=== PATIENT | male | born 1940 | race Caucasian/White ===

== ENCOUNTER → 2017-08-25 | Outpatient (CLI) | payer MEDICARE, BC ==
[~2017-08-25] MED LIST: LEVO.025 PO; LOTR5CAP2 PO; MULT400T PO; PERC5TAB12 PO; TAMS0.4C67 PO; XARE10TA PO; [UNRECOGNIZED DRUG - OTHER] PO
--- NOTE | 2017-08-31 09:57 | RSPPFT ---
DATE OF PROCEDURE: 08/25/17 COMMENTS: Spirometry demonstrates an FEV1 of 2.3 at 84% of predicted, FVC of 3.3 at 94%, FEF 25-75 is 53%. Post-bronchodilator study demonstrated no significant change. Lung volumes demonstrated a raised RV/TLC ratio suggesting hyperinflation with air trapping. Diffusion capacity is normal. Flow volume loops suggest an obstructive pattern. IMPRESSION: 1. Mild obstructive disease. 2. No significant change following use of bronchodilator. 3. Hyperinflation with air trapping. 4. Normal diffusion capacity.
== END ==
LOC: PHRSP 09:28
PROVIDERS: ATTEND Internal Medicine Cardiovascular Disease
DX: R06.02 Shortness of breath (principal)
CPT/HCPCS: 94060; 94726; 94729

== ENCOUNTER → 2017-10-01 | Outpatient (CLI) | payer MEDICARE, BC ==
[~2017-10-01] MED LIST changes: +AMLO5CAP PO; +BOSW5TAB PO; +HYDR-3580 PO; +LEVO25TA4 PO; +TAMS0.4C4 PO; +XARE20TA PO
[2017-10-01 09:09] LABS: HEMATOCRIT 44.4 % (39.0-51.0); MEAN CELL VOLUME 95.7 FL (80.0-100.0); MEAN CORPUSCULAR HEMOGLOBIN 32.6 PG (27.0-34.0); MEAN CORPUSCULAR HGB CONC 34.1 % (32.0-36.0); PLATELET COUNT 211 TH/MM3 (150-450); RED BLOOD COUNT 4.64 MIL/MM3 (4.50-5.90); RED CELL DISTRIBUTION WIDTH 13.2 % (11.6-17.2); REVIEW FLAG FINAL; WHITE BLOOD COUNT 4.6 TH/MM3 (4.0-11.0)
[2017-10-01 09:15] LABS: APTT (PATIENT) 35.4 SEC (24.3-30.1); INTERNATIONAL NORMALIZED RATIO 1.5 RATIO; PROTHROMBIN TIME - PATIENT 15.1 SEC (9.8-11.6)
[2017-10-01 09:19] LABS: BLOOD, URINE NEG (NEG); COMMENT (UR) CULT NOT INDICATED; CULTURE IF INDICATED CULT NOT INDICATED; GLUCOSE,URINE NEG (NEG); KETONE, URINE NEG (NEG); MUCUS URINE FEW /lpf (OCC); NITRITE,URINE NEG (NEG); PH, URINE 5.5 (5.0-8.5); SQUAMOUS EPITHELIAL CELL URINE <1 /hpf (0-5); URINE COLOR YELLOW (YELLW/STRAW)
[2017-10-01 09:25] LABS: POTASSIUM 4.3 MEQ/L (3.5-5.1)
== END ==
LOC: CPRE 08:13
PROVIDERS: ATTEND Orthopaedic Surgery
DX: Z01.812 Encounter for preprocedural laboratory examination (principal); Z01.818 Encounter for other preprocedural examination; M17.11 Unilateral primary osteoarthritis, right knee; I10 Essential (primary) hypertension; M79.609 Pain in unspecified limb
CPT/HCPCS: 36415; 80048; 81001; 85027; 85610; 85730

== ENCOUNTER 2017-10-19 05:09 | Inpatient (IN) | payer MEDICARE, BC ==
[~2017-10-19] VITALS: Ht 175.3 cm; Wt 104.7 kg
[~2017-10-19 05:09] MED LIST changes: -HYDR-3580 PO; -LEVO.025 PO; -LOTR5CAP2 PO; -PERC5TAB12 PO; -TAMS0.4C67 PO; -XARE10TA PO; -[UNRECOGNIZED DRUG - OTHER] PO
[2017-10-19] MEDS ORDERED: EXPAREL PERI-ARTICULAR INJECTION (TOTAL VOL. 100 ML) P-ARTICULR SCH ×2 (05:45)
[2017-10-19] MEDS ORDERED: CHLORHEXIDINE GLUCONATE 2 % 1 PACK (2 CLOTHS) TOPICAL PRN (05:45)
[2017-10-19] MEDS ORDERED: METOPROLOL TARTRATE 25 MG TAB PO PRN (05:45)
[2017-10-19] MEDS ORDERED: TRANEXAMIC ACID INJ 1,005 MG in SODIUM CHLORIDE 0.9% INJ 100 ML IV SCH ×4 (05:45)
[2017-10-19] MEDS ORDERED: LACTATED RINGER'S 1000 ML IV PRN (05:45)
[2017-10-19] MEDS ORDERED: CHLORHEXIDINE GLUCONATE 4% SOLN 120 ML BTL TOPICAL SCH (05:45)
[2017-10-19] MEDS ORDERED: SODIUM CHLORID 0.9% 500 ML IV PRN (05:45)
[2017-10-19] MEDS ORDERED: ceFAZolin 2 GM PREMIX 50 ML IV SCH (05:45)
[2017-10-19] MEDS ORDERED: POVIDONE IODINE 5% (ANTISEPSIS KIT) 4 APPLICATIONS EACH NARE PRN (05:45)
[2017-10-19] MEDS ORDERED: GENTAMICIN SULFATE 80 MG/2 ML VIAL ONE (06:00)
[2017-10-19 06:16] LABS: INTERNATIONAL NORMALIZED RATIO 1.1 RATIO; PROTHROMBIN TIME - PATIENT 11.4 SEC (9.8-11.6)
[2017-10-19] MEDS ORDERED: ACETAMINOPHEN 1000 MG/100 ML 100 ML IV ONE (06:30)
[2017-10-19] MEDS ORDERED: FAMOTIDINE 20 MG/2 ML VIAL ONE (06:30)
[2017-10-19] MEDS ORDERED: BUPIVACAINE LIPOSOME PF 1.3% 20 ML VIAL ONE (06:31)
--- NOTE | 2017-10-19 06:59 | HHI.FF ---
Face to Face Verification Diagnosis: (1) Status post total right knee replacement Physical Therapy Gait training Knee: Total knee, Protocol: Right, Gait training, Full weight bearing Right LE Weight Bearing: WB as tolerated Right LE Range of Motion: Active ROM (AROM,AAROM, PROM. ROM goal is 0 to 135 degrees.) Nursing Nursing: Dressing changes (begin on postoperative day 7) Dressing Changes: Daily dressing change, Coverderm/Primapore Additional Instructions Removed Steri-Strips on postoperative day 14. I have seen patient Tyler Hsu on 10/19/17. My clinical findings support the need for the requested home health care services because: Ltd mobility - disease progression Limited ability to care for self High risk of falls I certify that my clinical findings support that this patient is homebound because: Post-op weakness Unsteady gait/balance Unsafe to leave home unassisted Declan Elena MD (Charles) Oct 19, 2017 06:58
[2017-10-19] MEDS ORDERED: ONDANSETRON HCL 4 MG/2 ML VIAL IVP PRN (07:00)
[2017-10-19] MEDS ORDERED: ACETAMINOPHEN/HYDROcodone 325 MG/7.5 MG TAB PO PRN (07:00)
[2017-10-19] MEDS ORDERED: Post-op Orders (for Pharmacy) XX ONE (07:00)
[2017-10-19] MEDS: LEVOTHYROXINE SODIUM 25 MCG TAB PO SCH (07:00)
[2017-10-19] MEDS ORDERED: ZOLPIDEM TARTRATE 5 MG TAB PO PRN (07:00)
[2017-10-19] MEDS ORDERED: TRANEXAMIC ACID INJ 0 MG in SODIUM CHLORIDE 0.9% INJ 100 ML IV SCH (07:00)
[2017-10-19] MEDS ORDERED: MAGNESIUM HYDROXIDE SUSP 30 ML CUP PO PRN (07:00)
[2017-10-19] MEDS ORDERED: MORPHINE SULFATE 2 MG/ML INJ IV PUSH PRN (07:45)
[2017-10-19] MEDS ORDERED: [UNRECOGNIZED DRUG - OTHER] PO SCH (09:00)
[2017-10-19] MEDS ORDERED: NON-FORMULARY DRUG (Amlodipine-Benazepril 1 CAP) PO SCH (09:00)
[2017-10-19] MEDS: DRONEDARONE 400 MG TAB PO SCH ×2 (09:00→20:58)
[2017-10-19] MEDS: TAMSULOSIN HCL 0.4 MG CAP PO SCH ×2 (09:00→20:57)
--- NOTE | 2017-10-19 09:05 | HHI.PR ---
Immediate Post Op Note Procedure Date: Oct 19, 2017 Pre Op Diagnosis: (1) Primary osteoarthritis of right knee Post Op Diagnosis: (1) Primary osteoarthritis of right knee Surgeon: Edmund Elena M.D. Cruller Maker(s): Yariel MONK Procedure: Right total knee arthroplasty with [place] Triathlon prosthesis (uncemented) Findings: Osteoarthritis, right knee Complications: None Specimen(s) removed: None Estimated blood loss: 250 mL Anesthesia: General, Regional Block (abductor canal), Local (Exparel) Drains: Hemovac (2) IVF Patient to: PACU Patient Condition: Good Implant/Devices: SEE IMPLANT LOG (if applicable) Date/Time of Procedure: SEE SURGICAL CARE RECORD Declan Elena MD (Charles) Oct 19, 2017 09:05
--- NOTE | 2017-10-19 09:14 | PD.OP ---
Operative Report Date of Surgery: Oct 19, 2017 Preoperative Diagnosis: (1) Primary osteoarthritis of right knee Postoperative Diagnosis: (1) Primary osteoarthritis of right knee Procedure: Right total knee arthroplasty with [place] Triathlon prosthesis (uncemented) Anesthesia: Gen. endotracheal with supplemental abductor canal block regional and local with Exparel Surgeon: Edmund Elena MD Screener And Blender Operator(s): LACHO Tamayo Operation and Findings: Indications and Findings: This 77-year-old man has had right knee pain for the past 20 years which has recently become disabling for activities of daily living. His ambulation tolerance is 1 block. He has difficulty with stairs and standing from a seated position. He has unsteadiness on even surfaces. He has been treated with anti-inflammatory agents, analgesics, intra-articular corticosteroids and ambulatory aids. He has not responded to conservative measures. Physical findings show degenerative varum with medial laxity, palpable osteophytes and tenderness especially medially. Imaging studies showed advanced arthritis of the right knee with loss of joint space to bone-on- bone medially with eburnation and osteophyte formation tricompartmentally. Operative findings were consistent with the radiographic findings. There is significant loss of articular cartilage to exposed subchondral bone on the medial compartment with irregularity in the lateral and patellofemoral compartments. There were significant osteophytes in the medial, lateral and patellofemoral compartments. Range of motion at the conclusion of the procedure was 0 extension to 135 of flexion with excellent stability throughout the range. The prosthesis used was a [place] Triathlon prosthesis. The femur was a size 6 right cruciate retaining uncemented. The tibial baseplate was a size 6 Tritanium with a 6 x 11 mm cruciate retaining x-ray polyethylene spacer. The patella was a size 35 mm asymmetric Tritanium backed. The patient was brought to the clean-air operating suite. A spinal anesthetic was administered as well as a regional anesthetic by abductor canal block. The position was supine with a small bolster under the hip on the operative side. A pneumatic tourniquet was applied to the upper thigh. The lower extremity was then prepped with alcohol, Hibiclens and ChloraPrep and draped in the usual manner with the knee draped free. An appropriate timeout procedure was carried out. An incision was made from about 3 fingerbreadths above the superior medial pole of patella down the tibial tubercle on the medial side. The incision was deepened through the subcutaneous tissue to the right macular structures which were exposed medially and laterally. A medial retinacular incision was then made from the superior middle pole of patella down the tibial tubercle and up into the quadriceps tendon splitting it longitudinally and the medial one third. The patella was reflected. The infrapatellar fat pad was debulked. The anterior cruciate ligament was excised. Medial and lateral meniscectomies were initiated. Fenestrations were made in the distal femur and proximal tibia for intramedullary referencing guides. The distal femoral cutting guide and jig were then assembled for a 5, 8 mm cut. When this was fit position and placed cutting block was stabilized with pins. The jig was removed. The distal femoral cut was then completed with the oscillating saw. The sizing guide was then positioned in place along Whitesides line and the epicondylar axis and stabilized with pins. The femoral size was then determined as noted above. The 4-in-1 cutting block was then positioned in place. Anterior and posterior cuts were made followed by posterior and anterior chamfer cuts taking care to prevent injury to ligamentous structures. Osteophytes were then trimmed from the distal femur. A bone plug was then placed into the fenestration of the distal femur. The proximal tibia was then exposed. The medial and lateral meniscectomies were completed. The proximal tibial cutting guide was then positioned in place and stabilized with a pin for rotation. The depth of cut was then verified with a stylus off the lateral side. The cutting block was stabilized with pins. The jig was removed. The depth of cut was then verified and adjusted appropriately with the use of the spacer block. The proximal tibial cut was then made with the oscillating saw taking care to prevent injury to neurovascular and ligamentous structures. Proximal tibial bone was removed. Local anesthetic was administered with Exparel in the posterior capsule. The tibial baseplate trial was then positioned in place. After verifying the appropriate size, the base plate trial was positioned in place along with its spacer. The femoral component was then impacted into place. The alignment was checked. The tibial baseplate was then pinned in place on the tibia. Attention was directed to the patella. The patella drill guide was positioned in place for the appropriate sized patella. Patellar drilling was then carried out. The trial patella was positioned in place. The knee was taken through a range of motion which was easily 0 extension to 135 of flexion with excellent stability throughout the entire range. The patella trial was removed. The femoral drill holes were made. The femoral trials were removed. The tibial spacer was removed. A bone plug was placed into the proximal tibia. The tibial punch was impacted through the proximal tibial punch guide. This was all removed followed by placement of the tibial drill guide. The tibial drill holes were then made. The guide was removed. The cut ends of bone were then cleaned with pulse lavage. The tibial baseplate was then impacted into place and seated appropriately. The spacer was inserted. The the femoral component was then impacted into place and seated appropriately. The patella component was then seated with the patellar device and tightened appropriately. The knee was taken through a range of motion which was comparable to the previous range of motion with excellent stability in flexion and extension and appropriate patellofemoral tracking. The remainder of the Exparel was then injected throughout the knee as a local anesthetic. Drains were brought out the superior lateral aspect of the suprapatellar pouch. Wound closure then commenced using 0 Vicryl interrupted [id number] sutures for the capsular and fascial structures, 2-0 Vicryl interrupted simple sutures with buried knots for the subcutaneous tissues and 4- 0 Monocryl, tenuous subcuticular closure for the skin. The wound was then dressed with Steri-Strips followed by Optifoam silver impregnated dressing. Sterile soft roll with a cooling pad and Rolando bandage from the base of the toes to mid thigh were then applied. Patient was then transferred from the operating room to the recovery room in satisfactory condition having tolerated procedure well. Counts are correct. Specimens: None. Estimated blood loss: 250 mL Declan Elena MD ([place]) Oct 19, 2017 09:14
[2017-10-19] MEDS: LACTATED RINGER'S 1000 ML INJ 1,000 ML IV SCH ×2 (10:00→20:58)
--- NOTE | 2017-10-19 10:19 | RADRPT ---
EXAM DATE/TIME: 10/19/2017 09:52 [facility] COMPARISON: No previous studies available for comparison. INDICATIONS : Post-op right knee arthroplasty. MEDICAL HISTORY : Hypertension. Hypothyroidism. Afib. DVT. SURGICAL HISTORY : TURP. Left knee surgery. ENCOUNTER: Initial ACUITY: 1 day PAIN SCORE: Non-responsive. LOCATION: Right knee Postsurgical features of right knee arthroplasty. Arthroplasty components are in anatomic alignment. No significant acute bony fracture. Immediate postsurgical soft tissue features. CONCLUSION: 1. Status post right knee arthroplasty in anatomic alignment without significant acute bony fracture. Andrew Roberto MD on October 19, 2017 at 10:17 Board Certified Radiologist. This report was verified electronically.
[2017-10-19] MEDS: KETOROLAC TROMETHAMINE 30 MG/ML (IVP) VIAL IVP SCH ×3 (10:23→22:11)
[2017-10-19 11:00] VITALS: BP 102/65; PULSE 89; RESP 18; TEMP 96.7; O2SAT 93
[2017-10-19] MEDS ORDERED: DO NOT ADM ANY ANTICOAGULANT DRUGS PRN (11:15)
[2017-10-19 16:00] VITALS: BP 110/55; PULSE 82; RESP 18; TEMP 98.3; O2SAT 92
--- NOTE | 2017-10-19 17:25 | EKG ---
Date Performed: 10/19/2017 Time Performed: 06:35:20 PTAGE: 77 years EKG: ATRIAL FIBRILLATION POSSIBLE INFERIOR MYOCARDIAL INFARCTION , PROBABLY OLD ABNORMAL RHYTHM ECG Compared to PREVIOUS TRACING , the patient is now in atrial fibrillation. PREVIOUS TRACIN 6 00.39 DOCTOR: Melodie Good Interpretating Date/Time 10/19/2017 17:24:19
[2017-10-19 19:40] VITALS: BP 97/64; PULSE 88; RESP 19; TEMP 96.7; O2SAT 97
--- NOTE | 2017-10-19 23:53 | PD.CONS ---
HPI Service [facility] Consult Requested By Primary Care Physician Chi Mcnulty MD Diagnoses: History of Present Illness 77-year-old male with a history of intermittent fibrillation, BPH, hypothyroidism, obstructive sleep apnea who presents following elective right knee replacement. Patient tolerated the procedure well. Denies any chest pain or shortness of breath. Denies any nausea or vomiting. Says he felt fine prior to surgery. Denies any recent medication changes. Review of Systems Except as stated in HPI: all other systems reviewed are Neg Past Family Social History Allergies: Coded Allergies: No Known Allergies (Verified Allergy, Unknown, 10/19/17) Past Medical History Hypertension Atrial fibrillation Osteoarthritis BPH Hypothyroidism Obstructive sleep apnea Past Surgical History Right knee surgery on this admission. Patient also reports history of arm surgery. Reported Medications Tamsulosin 0.4 mg by mouth twice a day Xarelto 20 mg by mouth daily dronedarone 400 mg by mouth twice a day Amlodipineenalapril 510 milligrams capsules levothyroxine 25 g Family History Father with history of CHF. Brother secondary to bladder cancer Social History Nonsmoker. Drinks socially. Denies any history of illicit drugs. Physical Exam Vital Signs Vital Signs Date Time Temp Pulse Resp B/P (MAP) Pulse Ox O2 Delivery O2 Flow Rate FiO2 10/19/17 19:40 96.7 88 19 97/64 (75) 97 10/19/17 16:00 98.3 82 18 110/55 (73) 92 10/19/17 11:00 96.7 89 18 102/65 (77) 93 10/19/17 10:30 92 16 114/61 (78) 96 Room Air 10/19/17 10:15 88 16 127/56 (79) 98 10/19/17 10:00 92 16 107/68 (81) 98 Nasal Cannula 2 10/19/17 09:45 96 16 96/58 (71) 98 Nasal Cannula 2 10/19/17 09:35 94 16 101/61 (74) 96 Nasal Cannula 2 10/19/17 09:30 96 16 87/51 (63) 96 Nasal Cannula 2 10/19/17 09:25 97.9 100 16 81/53 (62) 96 Nasal Cannula 2 10/19/17 06:00 98.1 74 20 108/72 (84) 97 Physical Exam GENERAL: patient sitting up in chair. Appears comfortable. Alert and oriented 3 SKIN: Warm and dry. HEAD: Normocephalic. EYES: No scleral icterus. No injection or drainage. NECK: Supple, trachea midline. No JVD or lymphadenopathy. CARDIOVASCULAR: Regular rate and rhythm without murmurs, gallops, or rubs. RESPIRATORY: Breath sounds equal bilaterally. No accessory muscle use. GASTROINTESTINAL: Abdomen soft, non-tender, nondistended. MUSCULOSKELETAL: No cyanosis, or edema. postoperative knee not examined. Peripheral profusion intact. BACK: Nontender without obvious deformity. No CVA tenderness. Laboratory Laboratory Tests Test 10/19/17 05:55 Prothrombin Time 11.4 Prothromb Time International Ratio 1.1 Assessment and Plan Assessment and Plan Postoperative right knee replacement. Postoperative management as per surgical service. Atrial fibrillation. Continue Dronedarone Hypertension. Blood pressure acceptable. Continue home medications. Continue to monitor. BPH. Continue home tamsulosin. Hypothyroidism. Chronic. Continue home thyroxine. Obstructive sleep apnea. Continue home CPAP. Discussed Condition With patient, at bedside Siddhartha Foley MD Oct 19, 2017 23:53
[2017-10-20 00:12] VITALS: BP 105/63; PULSE 82; RESP 18; TEMP 97.2; O2SAT 94
[2017-10-20] MEDS: KETOROLAC TROMETHAMINE 30 MG/ML (IVP) VIAL IVP SCH ×3 (03:22→15:28)
[2017-10-20 03:32] VITALS: BP 122/83; PULSE 100; RESP 18; TEMP 97.6; O2SAT 95
[2017-10-20] MEDS: LEVOTHYROXINE SODIUM 25 MCG TAB PO SCH (04:41)
[2017-10-20 07:16] LABS: HEMATOCRIT 35.5 % (39.0-51.0); REVIEW FLAG FINAL
[2017-10-20 07:40] VITALS: PULSE 87
--- NOTE | 2017-10-20 07:48 | PD.ORT.PN ---
Subjective Post Op Day #: 1 Subjective Remarks He is doing well. He has minimal complaints related to his knee at this time. He has been up walking without physical therapy, correction down the culver and back. The drain accidentally was removed. Range of Motion 0 to 97. Distance Walked 50 feet with physical therapy. Objective Vitals Vital Signs Date Time Temp Pulse Resp B/P (MAP) Pulse Ox O2 Delivery O2 Flow Rate FiO2 10/20/17 03:32 97.6 100 18 122/83 (96) 95 10/20/17 00:12 97.2 82 18 105/63 (77) 94 10/19/17 19:40 96.7 88 19 97/64 (75) 97 10/19/17 16:00 98.3 82 18 110/55 (73) 92 10/19/17 11:00 96.7 89 18 102/65 (77) 93 10/19/17 10:30 92 16 114/61 (78) 96 Room Air 10/19/17 10:15 88 16 127/56 (79) 98 10/19/17 10:00 92 16 107/68 (81) 98 Nasal Cannula 2 10/19/17 09:45 96 16 96/58 (71) 98 Nasal Cannula 2 10/19/17 09:35 94 16 101/61 (74) 96 Nasal Cannula 2 10/19/17 09:30 96 16 87/51 (63) 96 Nasal Cannula 2 10/19/17 09:25 97.9 100 16 81/53 (62) 96 Nasal Cannula 2 I/O 10/19/17 10/19/17 10/19/17 10/20/17 10/20/17 10/20/17 07:00 15:00 23:00 07:00 15:00 23:00 Intake Total 2480 ml 1333 ml 480 ml Output Total 375 ml 290 ml 50 ml Balance 2105 ml 1043 ml 430 ml Intake Oral 480 ml 360 ml 480 ml IV Total 200 ml 973 ml Other 1800 ml Output Drainage Total 125 ml 290 ml 50 ml Estimated Blood Loss 250 ml Bladder Scan Volume Amount 151 ml # Voids 0 # Bowel Movements 0 0 Result Diagram: 10/20/17 0555 Imaging Last 72 hours Impressions Knee X-Ray 10/19/17 0650 Signed Impressions: Service Date/Time: Thursday, October 19, 2017 09:52 - CONCLUSION: 1. Status post right knee arthroplasty in anatomic alignment without significant acute bony fracture. Andrew Roberto MD Objective Remarks He is resting comfortably, supine in bed, in the CPM. The neurovascular status is intact. The dressing is dry and intact. The drain has been removed. Assessment & Plan Ortho Post Op Day #: 1 Problem List: (1) Status post total right knee replacement ICD Codes: Z96.651 - Presence of right artificial knee joint Plan: Continue postoperative care and physical therapy. Assessment and Plan Condition: Good. Orthopedically stable. DVT prophylaxis: TEDs, resumption of Xarelto, sequentials. Discharge plans: Home with home health care. An appointment was scheduled through the office. Prescriptions: [place] 7.5/325. He has had some urinary retention, so this will be monitored and a consultation with a neurologist will be obtained if necessary. Declan Elena MD (Charles) Oct 20, 2017 07:48
[2017-10-20 08:00] VITALS: BP 96/65; PULSE 93; RESP 18; TEMP 96.7; O2SAT 94
[2017-10-20] MEDS ORDERED: HYDR-3580 PO (08:27)
[2017-10-20] MEDS ORDERED: RIVAROXABAN 20 MG TAB PO SCH (08:30)
[2017-10-20] MEDS ORDERED: LISINOPRIL 10 MG TAB PO SCH (09:00)
[2017-10-20] MEDS: LACTATED RINGER'S 1000 ML INJ 1,000 ML IV SCH (09:00)
[2017-10-20] MEDS ORDERED: amLODIPine BESYLATE 5 MG TAB PO SCH (09:00)
[2017-10-20] MEDS: ACETAMINOPHEN/HYDROcodone 325 MG/7.5 MG TAB PO PRN ×2 (09:18→15:25)
[2017-10-20] MEDS: TAMSULOSIN HCL 0.4 MG CAP PO SCH (09:19)
[2017-10-20] MEDS: DRONEDARONE 400 MG TAB PO SCH (09:19)
[2017-10-20 09:47] VITALS: O2SAT 94
[2017-10-20] MEDS ORDERED: PNEUMOCOCCAL POLYVALENT INJ 25 MCG/0.5 ML SYR IM ONE (10:00)
[2017-10-20 11:00] VITALS: BP 95/69; PULSE 86; RESP 18; TEMP 97.3; O2SAT 96
--- NOTE | 2017-10-20 12:11 | HHI.PR ---
Subjective Remarks Patient seen and evaluated today in follow-up for atrial fibrillation and for urinary retention post procedure Now postop day 1 status post right total knee arthroplasty. Doing well and ambulatory with minimal pain Objective Vitals Vital Signs Date Time Temp Pulse Resp B/P (MAP) Pulse Ox O2 Delivery O2 Flow Rate FiO2 10/20/17 09:47 94 10/20/17 08:00 96.7 93 18 96/65 (75) 94 10/20/17 07:40 87 10/20/17 03:32 97.6 100 18 122/83 (96) 95 10/20/17 00:12 97.2 82 18 105/63 (77) 94 10/19/17 19:40 96.7 88 19 97/64 (75) 97 10/19/17 16:00 98.3 82 18 110/55 (73) 92 I/O 10/19/17 10/19/17 10/19/17 10/20/17 10/20/17 10/20/17 07:00 15:00 23:00 07:00 15:00 23:00 Intake Total 2480 ml 1333 ml 480 ml Output Total 375 ml 290 ml 1250 ml Balance 2105 ml 1043 ml -770 ml Intake Oral 480 ml 360 ml 480 ml IV Total 200 ml 973 ml Other 1800 ml Output Urine Total 1200 ml Drainage Total 125 ml 290 ml 50 ml Estimated Blood Loss 250 ml Bladder Scan Volume Amount 151 ml 151 ml 151 ml # Voids 0 # Bowel Movements 0 0 Result Diagram: 10/20/17 0555 Objective Remarks GENERAL: This is a well-nourished, well-developed patient, in no apparent distress. CARDIOVASCULAR: Regular rate and rhythm without murmurs, gallops, or rubs. RESPIRATORY: Clear to auscultation. Breath sounds equal bilaterally. No wheezes , rales, or rhonchi. GASTROINTESTINAL: Abdomen soft, non-tender, nondistended. Normal active bowel sounds MUSCULOSKELETAL: Extremities without clubbing, cyanosis, or edema. NEURO: Alert & Oriented x4 to person, place, time, situation. Moves all ext x4 A/P Problem List: (1) Urinary retention ICD Code: R33.9 - Retention of urine, unspecified Plan: Patient with known prostate issues (urologist as jean Swann) Continue Flomax Encourage ambulation Status post 1.8 L urine retention in the catheter May need to be discharged with catheter if unable to void (2) Atrial fibrillation ICD Code: I48.91 - Unspecified atrial fibrillation Plan: Follows up with Dr. Nilam Aragon and luis (3) Primary osteoarthritis of right knee ICD Code: M17.11 - Unilateral primary osteoarthritis, right knee Plan: post op day 1 status post right total knee arthroplasty Discharge Planning likely home pending urinary retention resolution Jeanette De La Vega MD Oct 20, 2017 12:11
[2017-10-20] MEDS ORDERED: DOCUSATE SODIUM 100 MG CAP PO SCH (21:00)
--- NOTE | 2017-10-21 08:45 | HHI.DS ---
Discharge Summary Admission Date Oct 19, 2017 at 05:09 Discharge Date: Oct 20, 2017 Admitting Diagnosis Primary osteoarthritis, right knee. Diagnosis: (1) Status post total right knee replacement Diagnosis: Principal ICD Codes: Z96.651 - Presence of right artificial knee joint Status: Acute Procedures Right total knee arthroplasty using [place] Triathlon prosthesis (uncemented) on 10/19/2017. Brief History This is a 77 year old male patient has had long-standing right knee pain which has been nonresponsive to conservative measures. These are detailed in the history and physical examination. He had limited ambulation tolerance with normal activities of daily living and rest pain. Physical findings showed degenerative tearing with medial laxity, crepitation on motion, medial tenderness, palpable osteophytes and limited motion. X-rays showed severe osteoarthritis with loss of articular cartilage to bone on bone in the medial compartment with tricompartmental osteophytes, eburnation. CBC/BMP: 10/20/17 0555 Significant Findings Laboratory Tests Test 10/19/17 05:55 10/20/17 05:55 Hemoglobin 12.3 GM/DL (13.0-17.0) Hematocrit 35.5 % (39.0-51.0) Imaging Last 72 hours Impressions Knee X-Ray 10/19/17 0650 Signed Impressions: Service Date/Time: Thursday, October 19, 2017 09:52 - CONCLUSION: 1. Status post right knee arthroplasty in anatomic alignment without significant acute bony fracture. Andrew Roberto MD PE at Discharge He is resting comfortably, supine in bed, in the CPM. The neurovascular status is intact. The dressing is dry and intact. The drain has been removed. Hospital Course The patient was admitted on 10/19/2017. He was taken to the clean air operating suite where the above noted operative procedure was carried out. He received prophylactic antibiotics in the form of Ancef preoperatively along with tranexamic acid. He tolerated the procedure well. In the recovery room, he was started on sequentials and a continuous passive motion device. He was started on physical therapy on the day of surgery and walked well, 50 feet. He continued prophylactic antibiotics according to the protocol. On the first postoperative day, he was walking well with minimal complaints. He was able to walk 200 feet twice. His range of motion was 0 extension to in excess of 90 of flexion. He reported minimal pain. He was discharged home with home health care on that 10/20/2017. Pt Condition on Discharge: Good Discharge Disposition: Disch w/ Home Health Serv Discharge Instructions Diet Instructions: As Tolerated, No Restrictions Activities You Can Perform: Full Weight Bearing, Shower Only-No Bath Activities to Avoid: Lifting/Bending, Strenuous Activity, Bathing, Driving Follow up Referrals: Orthopedics with Declan Elena MD ([place]) SNF/[facility]/ with [facility] New Medications: Hydrocodone/Acetaminophen (Hydrocodone-Acetamin 7.5-325) 7.5 Mg-325 Mg Tablet 1 TAB PO Q4H PRN for PAIN SCALE 1 TO 10, #50 TAB Continued Medications: Amlodipine-Benazepril (Amlodipine-Benazepril) 5-10 Mg Cap 1 CAP PO DAILY for Blood Pressure Management, #30 CAP 0 Refills Rhcgecrtp-Zitfejclytr-Xcjelqr (Osteo Bi-Flex One A Day) 1 Tab 2 TAB PO DAILY, TAB Dronedarone (Multaq) 400 Mg Tab 400 MG PO BID for Regulate Heart Beat, TAB 0 Refills Levothyroxine (Levothyroxine) 25 Mcg Tab 25 MCG PO DAILY for Thyroid, #30 TAB 0 Refills Rivaroxaban (Xarelto) 20 Mg Tab 20 MG PO DAILY for Blood Clot Prevention, TAB 0 Refills Tamsulosin (Tamsulosin) 0.4 Mg Cap 0.4 MG PO BID for Manage Prostate Problems, #30 CAP 0 Refills Declan Elena MD (Charles) Oct 21, 2017 08:45
== END 2017-10-20 15:47 | disposition home health service (06) | DRG 470 ==
LOC: HSDI 05:09 → N06B 11:24
PROVIDERS: ADMIT Orthopaedic Surgery; ATTEND Orthopaedic Surgery
PROC: 3E0T3BZ Introduction of Anesthetic Agent into Peripheral Nerves and Plexi, Percutaneous Approach (ICD-10-PCS; 2017-10-19)
PROC: 0SRC0JA Replacement of Right Knee Joint with Synthetic Substitute, Uncemented, Open Approach (ICD-10-PCS; principal; 2017-10-19 06:41)
PROC: 0T9B70Z Drainage of Bladder with Drainage Device, Via Natural or Artificial Opening (ICD-10-PCS; 2017-10-20)
DX: M17.11 Unilateral primary osteoarthritis, right knee (principal); I48.91 Unspecified atrial fibrillation; I10 Essential (primary) hypertension; E03.9 Hypothyroidism, unspecified; G47.33 Obstructive sleep apnea (adult) (pediatric); N40.1 Benign prostatic hyperplasia with lower urinary tract symptoms; R33.8 Other retention of urine; Z23 Encounter for immunization
CPT/HCPCS: 73560; 85014; 85018; 85610; 86850; 86900; 86901; 90732; 93005; 94150; C1776; C9290; J0131; J0690; J1580; J1885; J7120